=== PATIENT | male | born 1985 | race Two or more races ===

== ENCOUNTER 2019-04-24 15:09 | Emergency (ER) | payer SELFPAY ==
[~2019-04-24] VITALS: Ht 180.3 cm; Wt 72.6 kg
--- NOTE | 2019-04-24 15:49 | NUR ---
PT IS A/OX4, PRESENTS TO THE ER C/O LAC TO THE L ELBOW. PT REPORTS HE TRIPPED AND FELL DOWN A FLIGHT OF 6 STAIRS AT HIS RESIDENCE. PT DENIES HEAD INJURY. PT STATES HE FELT "FAINTY" FROM THE PAIN FOLLOWING THE FALL, BUT DENIES LOC. THERE IS AN APPROXIMATELY 1 INCH LAC ON THE L ELBOW W/ DRIED BLOOD. NO BLEEDING NOTED AT THIS TIME. GIRLFRIEND AT BEDSIDE STATES SHE APPLIED STERI-STRIP TO THE LAC RAIL SWITCHMAN. VSS. NAD AT THIS TIME.
--- NOTE | 2019-04-24 16:06 | NUR ---
MAGGIE NORIEGA AT BEDSIDE FOR MSE.
[2019-04-24] MEDS ORDERED: LET TOPICAL SOLUTION 8 ML UDC ONE (16:17)
[2019-04-24] MEDS: LET TOPICAL SOLUTION 8 ML UDC TP ONE (16:23)
--- NOTE | 2019-04-24 17:09 | NUR ---
LAC RINSED OUT W/ NS.
[2019-04-24] MEDS ORDERED: SODIUM BICARBONATE 4.2 % (NEUT) 5 ML VIAL ONE (17:22)
[2019-04-24] MEDS: SODIUM BICARBONATE 4.2 % (NEUT) 5 ML VIAL TP ONE (17:38)
[2019-04-24] MEDS: LIDOCAINE VISCUS 2% 15 ML UDC XX ONE (17:38)
[2019-04-24] MEDS: NEOMY/BACITRA/POLYMYXIN B OINT UD PACKET TP ONE (17:52)
[2019-04-24] MEDS ORDERED: NEOMY/BACITRA/POLYMYXIN B OINT UD PACKET TP ONE (17:54)
--- NOTE | 2019-04-24 17:57 | NUR ---
Patient discharged to home in stable conditon. Written and verbal after care instructions given. Patient verbalizes understanding of instructions. ALL BELONGINGS W/ PT. PT SELF-AMBULATED W/O DIFFICULTY.
[2019-04-24 17:58] VITALS: BP 124/71
== END 2019-04-24 18:03 | disposition home or self-care (01) ==
LOC: ER 15:11
DX: S51.012A Laceration without foreign body of left elbow, initial encounter (principal); W22.8XXA Striking against or struck by other objects, initial encounter; Y93.89 Activity, other specified; Y92.89 Other specified places as the place of occurrence of the external cause; Y99.8 Other external cause status
CPT/HCPCS: 12002; 73080; 99283; J3490; A4217; A4663